=== PATIENT | female | born 1975 | race Caucasian/White ===

== ENCOUNTER 2016-08-22 16:20 | Emergency (ER) | payer SELFPAY ==
[2016-08-22 16:28] VITALS: BP 139/98; PULSE 109; RESP 18; TEMP 98.9; O2SAT 100
[2016-08-22] MEDS ORDERED: TRAM50TA PO (16:42)
[2016-08-22] MEDS ORDERED: AMBI12.5 PO (16:42)
[2016-08-22] MEDS ORDERED: XANA2TAB2 PO (16:42)
[2016-08-22] MEDS ORDERED: LORazepam 2 MG/ML VIAL IV PUSH ONE ×2 (16:45→20:30)
[2016-08-22] MEDS ORDERED: SODIUM CHLOR 0.9% 1000 ML INJ 1,000 ML IV ONE ×2 (16:45→18:45)
--- NOTE | 2016-08-22 17:17 | PD ---
HPI Chief Complaint: Cardiac Complaint Time Seen by Provider: 16:29 Travel History International Travel<30 days: No Contact w/Intl Traveler<30days: No Traveled to known affect area: No History of Present Illness HPI A 41 year-old woman who presents emergency department complaining of lightheadedness dizziness and being out of her Xanax. States she's been weaning down off 2 mg Xanax after she was unable to get in with her primary physician for a refill. States she woke up today with palpitations. She was feeling sick, near syncopal. She had diarrhea couple days before this and thought that initially was related to that. She went to an urgent care but her heart rate was elevated so they sent her to the emergency department here. She does feel shaky and jittery. She states she's been weaning down over the past 5 days or so, her last Xanax was 2-3 days ago. History Past Medical History Narrative Medical Anxiety Asthma History of SBO Social History Alcohol Use: No Tobacco Use: No Allergies-Medications (Allergen,Severity, Reaction): Coded Allergies: No Known Allergies (Unverified , 08/22/16) Reported Meds & Prescriptions Reported Meds & Active Scripts Active Chlordiazepoxide (Chlordiazepoxide HCl) 25 Mg Cap 25 Mg PO TID PRN Reported Ambien CR (Zolpidem Tartrate) 12.5 Mg Tab 12.5 Mg PO HS PRN Tramadol (Tramadol HCl) 50 Mg Tab 100 Mg PO Q6H PRN Xanax (Alprazolam) 2 Mg Tab 2 Mg PO HS PRN Review of Systems Except as stated in HPI: all other systems reviewed are Neg Physical Exam Narrative GENERAL: 41 year-old woman, generally well-appearing, no acute distress. SKIN: Warm and dry. HEAD: Atraumatic. Normocephalic. EYES: Pupils equal and round. No scleral icterus. No injection or drainage. ENT: No nasal bleeding or discharge. Mucous membranes pink and moist. NECK: Trachea midline. No JVD. CARDIOVASCULAR: Heart rate rapid but regular. No murmurs. RESPIRATORY: No accessory muscle use. Clear to auscultation. Breath sounds equal bilaterally. GASTROINTESTINAL: Abdomen soft, non-tender, nondistended. Hepatic and splenic margins not palpable. MUSCULOSKELETAL: No obvious deformities. No clubbing. No cyanosis. No edema. NEUROLOGICAL: Awake and alert. No obvious cranial nerve deficits. Motor grossly within normal limits. Normal speech. PSYCHIATRIC: Appropriate mood and affect; insight and judgment normal. Data Data Last Documented VS Vital Signs Date Time Temp Pulse Resp B/P Pulse Ox O2 Delivery O2 Flow Rate FiO2 08/22/16 16:28 98.9 109 18 139/98 100 Orders Complete Blood Count With Diff (08/22/16 16:37) Comprehensive Metabolic Panel (08/22/16 16:37) Iv Access Insert/Monitor (08/22/16 16:37) Beta Hcg (Quant/Titer) (08/22/16 16:37) Sodium Chlor 0.9% 1000 Ml Inj (Ns 1000 M (08/22/16 16:45) Lorazepam Inj (Ativan Inj) (08/22/16 16:45) D-Dimer (08/22/16 16:42) Chlordiazepoxide (Librium) (08/22/16 18:15) Labs Laboratory Tests Test 08/22/16 16:55 White Blood Count 8.4 TH/MM3 Red Blood Count 4.28 MIL/MM3 Hemoglobin 13.3 GM/DL Hematocrit 37.9 % Mean Corpuscular Volume 88.7 FL Mean Corpuscular Hemoglobin 31.0 PG Mean Corpuscular Hemoglobin 35.0 % Concent Red Cell Distribution Width 14.0 % Platelet Count 312 TH/MM3 Mean Platelet Volume 7.3 FL Neutrophils (%) (Auto) 79.0 % Lymphocytes (%) (Auto) 13.2 % Monocytes (%) (Auto) 5.3 % Eosinophils (%) (Auto) 1.1 % Basophils (%) (Auto) 1.4 % Neutrophils # (Auto) 6.6 TH/MM3 Lymphocytes # (Auto) 1.1 TH/MM3 Monocytes # (Auto) 0.4 TH/MM3 Eosinophils # (Auto) 0.1 TH/MM3 Basophils # (Auto) 0.1 TH/MM3 CBC Comment DIFF FINAL Differential Comment D-Dimer Quantitative (PE/DVT) 0.31 MG/L FEU Sodium Level 136 MEQ/L Potassium Level 4.5 MEQ/L Chloride Level 101 MEQ/L Carbon Dioxide Level 26.8 MEQ/L Anion Gap 8 MEQ/L Blood Urea Nitrogen 19 MG/DL Creatinine 0.88 MG/DL Estimat Glomerular Filtration 71 ML/MIN Rate Random Glucose 95 MG/DL Calcium Level 9.1 MG/DL Total Bilirubin 0.4 MG/DL Aspartate Amino Transf 26 U/L (AST/SGOT) Alanine Aminotransferase 26 U/L (ALT/SGPT) Alkaline Phosphatase 75 U/L Total Protein 8.1 GM/DL Albumin 4.6 GM/DL Human Chorionic Gonadotropin, LESS THAN 1 Quant MIU/ML MDM Medical Decision Making Medical Screen Exam Complete: Yes Emergency Medical Condition: Yes Interpretation(s) Review of EKG: Sinus tachycardia at a rate of 118, nonspecific lateral ST depressions, no definite evidence of acute ischemia. LABS: CBC unremarkable. CMP unremarkable. HCG negative. D-dimer 0.31 Differential Diagnosis Anxiety, opiate withdrawal, PE, dehydration, other Narrative Course Medical decision making INITIAL cause a 41 year-old woman presents emergent department saying that she was taking 2 mg of Xanax every night but that she was running out was able follow-up with her primary physician so she started weaning herself down. She states that she would initial done over 5 days. 3 days ago. Review of her E[employer] shows she's not been prescribed Xanax in the past year. She states she was on Klonopin which she been taking and then ran out for started taking her XANAX. Her last Klonopin prescription was in February. This is for 20 tablets. I don't see any evidence of PE. She states that her heart rate is still in the 1 teens to 120s and she still feel shaky. She has not gotten the Librium. She states that she feels like her symptoms are untreated. I explained to her that we don't give refills on those controlled substances. I explained to her withdrawal symptoms may continue, and Librium keep her safe. Diagnosis Primary Impression: Anxiety Additional Impression: Benzodiazepine withdrawal Qualified Code: F13.230 - Benzodiazepine withdrawal, uncomplicated Additional Instructions: Take Librium as prescribed as needed for withdrawal symptoms. Started 3 times a day and taper the dose over 3-4 days. Follow-up with a primary physician for further evaluation and treatment of your anxiety. Return to the emergency department for any new or worsening symptoms. Med/Other Pt SpecificInfo: Prescription(s) given Scripts Chlordiazepoxide 25 Mg Cap25 Mg PO TID PRN (WITHDRAWAL) #12 CAP Ref 0 Prov:Farhad Brito MD 08/22/16 Disposition: 01 DISCHARGE HOME Condition: Stable Farhad Brito MD Aug 22, 2016 17:17
[2016-08-22 17:24] LABS: AUTOMATED NEUTROPHIL # 6.6 TH/MM3 (1.8-7.7); BASOPHIL # 0.1 TH/MM3 (0-0.2); BASOPHIL % 1.4 % (0.0-2.0); EOSINOPHIL # 0.1 TH/MM3 (0-0.4); EOSINOPHIL % 1.1 % (0.0-4.0); HEMATOCRIT 37.9 % (35.0-46.0); HEMO FLAGS DIFF FINAL; LYMPH % 13.2 % (9.0-44.0); LYMPHOCYTE # 1.1 TH/MM3 (1.0-4.8); MEAN CELL VOLUME 88.7 FL (80.0-100.0); MONO % 5.3 % (0.0-8.0); PLATELET COUNT 312 TH/MM3 (150-450); RED BLOOD COUNT 4.28 MIL/MM3 (4.00-5.30); WHITE BLOOD COUNT 8.4 TH/MM3 (4.0-11.0)
[2016-08-22 17:46] LABS: ALKALINE PHOSPHATASE 75 U/L (45-117); ALT (GPT) 26 U/L (10-53); ANION GAP 8 MEQ/L (5-15); AST (GOT) 26 U/L (15-37); BETA HCG QUANT LESS THAN 1 MIU/ML (0-5); BICARBONATE 26.8 MEQ/L (21.0-32.0); BLOOD UREA NITROGEN 19 MG/DL (7-18); CHLORIDE 101 MEQ/L (98-107); GLOMERULAR FILTRATION RATE 71 ML/MIN (>89); POTASSIUM 4.5 MEQ/L (3.5-5.1); SODIUM (NA) 136 MEQ/L (136-145); TOTAL BILIRUBIN ADULT 0.4 MG/DL (0.2-1.0)
[2016-08-22 18:00] VITALS: BP 159/95; PULSE 116; RESP 18; O2SAT 100
[2016-08-22] MEDS ORDERED: chlordiazePOXIDE 25 MG CAP PO STA (18:15)
[2016-08-22] MEDS ORDERED: CHLO25CA2 PO (18:23)
[2016-08-22 19:00] VITALS: BP 154/91; O2SAT 100
[2016-08-22 19:10] VITALS: BP 154/91; PULSE 115; RESP 20; O2SAT 100
--- NOTE | 2016-08-22 19:25 | PD ---
Physical Exam Narrative General: The patient is a well-developed well-nourished female in no acute distress Head and Neck exam: Head is normocephalic atraumatic. Eyes: EOMI, pupils are equal round and reactive to light. Nose: Midline septum with pink mucous membranes Mouth: Dentition unremarkable. Moist mucus membranes. Posterior oropharynx is not erythematous. No tonsillar hypertrophy. Uvula midline. Airway patent. Neck: No palpable lymphadenopathy. No nuchal rigidity. No thyromegaly. Cardiovascular: Sinus tachycardia in the low 100 without murmurs, gallops, or rubs. No pulse deficit to the extremities and simultaneous auscultation and palpation of her radial artery. Lungs: Clear to auscultation bilaterally. No wheezes, rhonchi, or rales. Abdomen: Soft, without tenderness to palpation in all 4 quadrants of the abdomen. No guarding, rebound, or rigidity. Normal bowel sounds are audible. Extremities: No clubbing, cyanosis, or edema. 2+ pulses in all 4 extremities. No calf tenderness on palpation. Back: No spinous process tenderness to palpation. No costovertebral angle tenderness to palpation. Skin Exam: No rash noted. Intact skin that is warm and dry. Data Data Last Documented VS Vital Signs Date Time Temp Pulse Resp B/P Pulse Ox O2 Delivery O2 Flow Rate FiO2 08/22/16 21:35 107 20 159/103 100 08/22/16 20:59 Nasal Cannula 2 08/22/16 16:28 98.9 Orders Complete Blood Count With Diff (08/22/16 16:37) Comprehensive Metabolic Panel (08/22/16 16:37) Iv Access Insert/Monitor (08/22/16 16:37) Beta Hcg (Quant/Titer) (08/22/16 16:37) Sodium Chlor 0.9% 1000 Ml Inj (Ns 1000 M (08/22/16 16:45) Lorazepam Inj (Ativan Inj) (08/22/16 16:45) D-Dimer (08/22/16 16:42) Chlordiazepoxide (Librium) (08/22/16 18:15) Sodium Chlor 0.9% 1000 Ml Inj (Ns 1000 M (08/22/16 18:45) Thyroid Stimulating Hormone (08/22/16 19:25) Lorazepam Inj (Ativan Inj) (08/22/16 20:30) Ondansetron Inj (Zofran Inj) (08/22/16 20:30) Oral Rehydration (08/22/16 20:30) Labs Laboratory Tests Test 08/22/16 16:55 White Blood Count 8.4 TH/MM3 Red Blood Count 4.28 MIL/MM3 Hemoglobin 13.3 GM/DL Hematocrit 37.9 % Mean Corpuscular Volume 88.7 FL Mean Corpuscular Hemoglobin 31.0 PG Mean Corpuscular Hemoglobin 35.0 % Concent Red Cell Distribution Width 14.0 % Platelet Count 312 TH/MM3 Mean Platelet Volume 7.3 FL Neutrophils (%) (Auto) 79.0 % Lymphocytes (%) (Auto) 13.2 % Monocytes (%) (Auto) 5.3 % Eosinophils (%) (Auto) 1.1 % Basophils (%) (Auto) 1.4 % Neutrophils # (Auto) 6.6 TH/MM3 Lymphocytes # (Auto) 1.1 TH/MM3 Monocytes # (Auto) 0.4 TH/MM3 Eosinophils # (Auto) 0.1 TH/MM3 Basophils # (Auto) 0.1 TH/MM3 CBC Comment DIFF FINAL Differential Comment D-Dimer Quantitative (PE/DVT) 0.31 MG/L FEU Sodium Level 136 MEQ/L Potassium Level 4.5 MEQ/L Chloride Level 101 MEQ/L Carbon Dioxide Level 26.8 MEQ/L Anion Gap 8 MEQ/L Blood Urea Nitrogen 19 MG/DL Creatinine 0.88 MG/DL Estimat Glomerular Filtration 71 ML/MIN Rate Random Glucose 95 MG/DL Calcium Level 9.1 MG/DL Total Bilirubin 0.4 MG/DL Aspartate Amino Transf 26 U/L (AST/SGOT) Alanine Aminotransferase 26 U/L (ALT/SGPT) Alkaline Phosphatase 75 U/L Total Protein 8.1 GM/DL Albumin 4.6 GM/DL Thyroid Stimulating Hormone 2.450 uIU/ML 3rd Gen Human Chorionic Gonadotropin, LESS THAN 1 Quant MIU/ML [facility] Medical Record Reviewed: Yes Supervised Visit with CHANEL: No Narrative Course During the course of the patients emergency department visit, the patients history, examination, and differential diagnosis were reviewed with the patient. The patient had IV access obtained and blood work sent for analysis. The patient was placed on a software security architect with oximetry and blood pressure monitoring. The patient's case was checked out to me by who requested that I reexamine the patient after IV fluids were administered. The patient was provided normal saline 2 L IV fluid bolus, Ativan 0.5 mg IV. The patient had Librium then administered. The patients laboratory studies were reviewed and remarkable for a CBC that is unremarkable, CMP shows a BUN of 19, GFR 71, test is negative, d- dimer 0.31. A TSH was added onto her blood work. The patient's TSH was within normal limits. The patient was reexamined. She continued to be slightly tachycardic and was given an additional Ativan 0.5 mg IV. The patient was given Zofran for nausea. The patient was started on oral rehydration therapy with Gatorade. The patient tolerated drinking fluids well. The patient will be discharged home to follow-up with a an outpatient primary care physician in the area. The patient reports that she has intermittently been on benzodiazepines for the last 15 years for anxiety/PTSD. 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 The patient was given the name of the outpatient referral doctor, Dr. Tolbert for follow-up. The patient was previously provided by Dr. Segura prescription for Librium to be taken in the meantime to avoid further symptoms of withdrawal. The patient was agreeable with this plan. The patient is resting comfortably and feels better, is alert and in no distress. The patients results and examination findings were discussed with the patient. The repeat examination is unremarkable and benign. The history, exam, diagnostic testing, and current condition do not suggest any significant pathology to warrant further testing, continued ED treatment, admission, or surgical evaluation at this point. The vital signs have been stable. The patient does not have uncontrollable pain, intractable vomiting, or other significant symptoms. The patient's condition is stable and appropriate for discharge. The patient will pursue further outpatient evaluation with a primary care physician or other designated or consulting physician as indicated in the discharge instructions. The patient expressed understanding and was agreeable with this plan. Diagnosis Primary Impression: Anxiety Additional Impression: Benzodiazepine withdrawal Qualified Code: F13.230 - Benzodiazepine withdrawal, uncomplicated Patient Instructions: General Instructions Departure Forms: Tests/Procedures Additional Instruction: Take Librium as prescribed as needed for withdrawal symptoms. Started 3 times a day and taper the dose over 3-4 days. Follow-up with a primary physician for further evaluation and treatment of your anxiety. Return to the emergency department for any new or worsening symptoms. Scripts Chlordiazepoxide 25 Mg Cap25 Mg PO TID PRN (WITHDRAWAL) #12 CAP Ref 0 Prov:Farhad Brito MD 08/22/16 Disposition: 01 DISCHARGE HOME Condition: Stable Lisset Alford MD Aug 22, 2016 19:25
[2016-08-22] MEDS ORDERED: ONDANSETRON HCL 4 MG/2 ML VIAL IV PUSH ONE (20:30)
[2016-08-22 20:59] VITALS: BP 145/95; PULSE 103; RESP 20; O2SAT 100
[2016-08-22 21:35] VITALS: BP 159/103; PULSE 107; RESP 20; O2SAT 100
[2016-08-22] MEDS ORDERED: chlordiazePOXIDE 25 MG CAP PO ONE (22:45)
== END 2016-08-22 22:49 | disposition home or self-care (01) ==
LOC: NEPC 16:20
DX: F41.9 Anxiety disorder, unspecified (principal); F13.239 Sedative, hypnotic or anxiolytic dependence with withdrawal, unspecified
CPT/HCPCS: 80053; 84443; 84702; 85025; 85379; 96361; 96374; 96375; 96376; 99284; J2060; J2405; J7030